=== PATIENT | female | born 1945 | race African-American/Black ===

== ENCOUNTER 2019-08-22 09:35 | Emergency (ER) | payer MEDICAID, MEDICARE ==
[~2019-08-22] VITALS: Ht 157.5 cm; Wt 56.0 kg
[~2019-08-22 09:35] MED LIST: DIOVAN; VALS320T2
[2019-08-22 13:17] VITALS: BP 154/81
[2019-08-22] MEDS ORDERED: ACETAMINOPHEN 500MG TABLET PO ONE (13:30)
== END 2019-08-22 13:42 | disposition home or self-care (01) ==
LOC: ER 09:35
DX: M25.561 Pain in right knee (principal); I10 Essential (primary) hypertension; M25.461 Effusion, right knee; Z98.890 Other specified postprocedural states
CPT/HCPCS: 29505; 73562; 99283

== ENCOUNTER 2019-11-21 19:28 | Emergency (ER) | payer MEDICARE, MEDICAID ==
[~2019-11-21] VITALS: Ht 157.5 cm; Wt 57.0 kg
[2019-11-21 19:59] VITALS: BP 175/119
== END 2019-11-22 05:16 | disposition left against medical advice (07) ==
LOC: ER 19:28 → EDBD 19:28 → ER 11-22 05:16
DX: R07.89 Other chest pain (principal)
CPT/HCPCS: 99281

== ENCOUNTER 2020-01-14 17:03 | Inpatient (IN) | payer MEDICARE, MEDICAID ==
[~2020-01-14] VITALS: Ht 162.6 cm; Wt 56.4 kg
[2020-01-14 16:30] VITALS: BP 139/93
[~2020-01-14 17:03] MED LIST changes: +ASCO500T20 PO; +FAMO20TA8 PO; +NITR-87 MT; +ZINC220C2 PO
[2020-01-14] MEDS ORDERED: MAGNESIUM/ALUMINUM HYDROXIDE/SIMETHICONE 30ML UDC PO PRN (17:45)
[2020-01-14] MEDS ORDERED: ZOLPIDEM TARTRATE 5MG TABLET PO PRN (17:45)
[2020-01-14] MEDS ORDERED: DOCUSATE SODIUM 100MG CAPSULE PO PRN (17:45)
[2020-01-14] MEDS ORDERED: NITROGLYCERIN 0.4MG TABLET SL SL PRN (17:45)
[2020-01-14] MEDS ORDERED: IPRATROPIUM/ALBUTEROL 0.5-3(2.5)MG/3ML NEB HHN PRN (17:45)
[2020-01-14] MEDS ORDERED: GUAIFENESIN 200MG/10ML SUGAR FREE UDC PO PRN (17:45)
[2020-01-14] MEDS ORDERED: HALOPERIDOL LACTATE 5MG/ML VIAL IM PRN (17:45)
[2020-01-14] MEDS ORDERED: CLONIDINE 0.1MG TABLET PO PRN (17:45)
[2020-01-14] MEDS ORDERED: ONDANSETRON 4MG ODT PO PRN (17:45)
[2020-01-14 20:00] VITALS: BP 157/66
[2020-01-14] MEDS: ASCORBIC ACID 500 MG TABLET PO SCH (21:34)
[2020-01-15 07:38] LABS: BASOPHILS % 0.9 % (0.0-2.0); EOSINOPHILS % 3.4 % (0.0-5.0); HEMATOCRIT. 39.3 % (36.0-48.0); HEMOGLOBIN. 12.8 g/dL (12.0-16.0); LYMPHOCYTES % 35.2 % (20.0-50.0); MEAN CORPUSCULAR HEMOGLOBIN 29.3 pg (28.0-32.0); MEAN CORPUSCULAR VOLUME 89.9 fL (81.0-99.0); MEAN PLATELET VOLUME 9.3 fl (7.4-10.4); MONOCYTES % 12.7 % (2.0-8.0); NEUTROPHILS % 47.8 % (40.0-76.0); PLATELET 200 x1000/uL (130-400); RED BLOOD CELL COUNT 4.37 mill/uL (4.2-5.4); RED CELL DISTRIBUTION WIDTH 16.3 % (11.6-14.6)
[2020-01-15 07:43] LABS: CHLORIDE 110 mEq/L (98-107)
[2020-01-15 08:15] VITALS: BP 92/52
[2020-01-15] MEDS: ENOXAPARIN 30MG/0.3ML SYR SUBCUT SCH (08:33)
[2020-01-15] MEDS: ZINC SULFATE 220 MG ( 50 ) CAPSULE PO SCH (08:34)
[2020-01-15] MEDS: ASPIRIN 325MG EC TABLET PO SCH (08:34)
[2020-01-15] MEDS: FAMOTIDINE 20MG/2ML VIAL IV SCH ×2 (08:34→08:38)
[2020-01-15] MEDS: ASCORBIC ACID 500 MG TABLET PO SCH ×2 (08:34→21:42)
[2020-01-15] MEDS: ACETAMINOPHEN 650MG/20.3ML UDC PO PRN ×2 (17:11→22:34)
[2020-01-15] MEDS ORDERED: BISACODYL 5MG TABLET PO PRN (19:00)
[2020-01-15] MEDS ORDERED: NA PHOS,M-B/NA PHOS,DI-BA ENEMA 118ML PR PRN (19:00)
[2020-01-15] MEDS ORDERED: LACTULOSE 20G/30ML UDC PO PRN (19:00)
[2020-01-15] MEDS ORDERED: OXYCODONE HCL 5MG TABLET PO PRN (19:45)
[2020-01-15 20:00] VITALS: BP 134/93
[2020-01-16 06:49] LABS: CHLORIDE 108 mEq/L (98-107)
[2020-01-16 06:57] LABS: BASOPHILS % 1.2 % (0.0-2.0); EOSINOPHILS % 3.8 % (0.0-5.0); HEMATOCRIT. 37.8 % (36.0-48.0); HEMOGLOBIN. 12.7 g/dL (12.0-16.0); LYMPHOCYTES % 42.2 % (20.0-50.0); MEAN CORPUSCULAR VOLUME 89.4 fL (81.0-99.0); MEAN PLATELET VOLUME 9.4 fl (7.4-10.4); MONOCYTES % 10.4 % (2.0-8.0); NEUTROPHILS % 42.4 % (40.0-76.0); PLATELET 187 x1000/uL (130-400); RED BLOOD CELL COUNT 4.22 mill/uL (4.2-5.4); RED CELL DISTRIBUTION WIDTH 16.2 % (11.6-14.6)
[2020-01-16 07:01] LABS: PHOSPHORUS 4.6 mg/dL (2.5-4.9)
[2020-01-16 07:02] LABS: TOTAL IRON BINDING CAPACITY 292 ug/dL (250-450)
[2020-01-16 07:26] LABS: VITAMIN B12 SERUM 630 pg/mL (211-911)
[2020-01-16 08:14] VITALS: BP 110/68
[2020-01-16] MEDS: ENOXAPARIN 30MG/0.3ML SYR SUBCUT SCH (08:53)
[2020-01-16] MEDS: LIDOCAINE 5% PATCH TOP SCH (08:53)
[2020-01-16] MEDS: FAMOTIDINE 20MG TABLET PO SCH (08:54)
[2020-01-16] MEDS: ASPIRIN 325MG EC TABLET PO SCH (08:54)
[2020-01-16] MEDS: ZINC SULFATE 220 MG ( 50 ) CAPSULE PO SCH (08:54)
[2020-01-16] MEDS: ASCORBIC ACID 500 MG TABLET PO SCH ×2 (08:54→21:16)
[2020-01-16] MEDS: ACETAMINOPHEN 650MG/20.3ML UDC PO PRN ×2 (10:35→21:17)
[2020-01-16] MEDS ORDERED: BISACODYL 10MG SUPP PR NR (13:30)
[2020-01-16] MEDS ORDERED: LACTULOSE 20G/30ML UDC PO SCH (13:32)
[2020-01-16] MEDS ORDERED: CYANOCOBALAMIN 1000MCG/ML VIAL IM NR (14:00)
[2020-01-16] MEDS: FERROUS SULFATE 325MG TABLET PO SCH (16:23)
[2020-01-16 17:14] LABS: CLARITY URINE CLOUDY (CLEAR); COLOR URINE YELLOW (YELLOW); KETONES URINE TRACE (NEGATIVE); LEUKOCYTE ESTERASE URINE 1+ (NEGATIVE); NITRITE URINE NEGATIVE (NEGATIVE); OCCULT BLOOD URINE NEGATIVE (NEGATIVE); PROTEIN URINE NEGATIVE (NEGATIVE); SPECIFIC GRAVITY URINE 1.036 (1.005-1.030)
[2020-01-16 20:00] VITALS: BP 125/86
[2020-01-16] MEDS: POLYETHYLENE GLYCOL 3350 (17GM) 1 DOSE PACK PO SCH (21:16)
[2020-01-17 07:48] VITALS: BP 130/77
[2020-01-17] MEDS: FAMOTIDINE 20MG TABLET PO SCH (08:16)
[2020-01-17] MEDS: FERROUS SULFATE 325MG TABLET PO SCH ×3 (08:16→16:48)
[2020-01-17] MEDS: ASCORBIC ACID 500 MG TABLET PO SCH ×2 (08:16→19:45)
[2020-01-17] MEDS: ASPIRIN 325MG EC TABLET PO SCH (08:16)
[2020-01-17] MEDS: LIDOCAINE 5% PATCH TOP SCH (08:17)
[2020-01-17] MEDS: ENOXAPARIN 30MG/0.3ML SYR SUBCUT SCH (08:17)
[2020-01-17] MEDS: ZINC SULFATE 220 MG ( 50 ) CAPSULE PO SCH (08:17)
[2020-01-17] MEDS: POLYETHYLENE GLYCOL 3350 (17GM) 1 DOSE PACK PO SCH (19:45)
[2020-01-17] MEDS: ACETAMINOPHEN 650MG/20.3ML UDC PO PRN (19:45)
[2020-01-17 20:00] VITALS: BP 130/68
[2020-01-18 08:00] VITALS: BP_SYST 115; BP_SYST 127; BP_DIAS 75; BP_DIAS 86
[2020-01-18] MEDS: ZINC SULFATE 220 MG ( 50 ) CAPSULE PO SCH (08:20)
[2020-01-18] MEDS: ASCORBIC ACID 500 MG TABLET PO SCH ×2 (08:20→20:40)
[2020-01-18] MEDS: FERROUS SULFATE 325MG TABLET PO SCH ×3 (08:20→16:57)
[2020-01-18] MEDS: FAMOTIDINE 20MG TABLET PO SCH (08:21)
[2020-01-18] MEDS: LIDOCAINE 5% PATCH TOP SCH (08:21)
[2020-01-18] MEDS: ENOXAPARIN 30MG/0.3ML SYR SUBCUT SCH (08:21)
[2020-01-18] MEDS: ASPIRIN 325MG EC TABLET PO SCH (08:21)
[2020-01-18 08:39] VITALS: BP 127/86
[2020-01-18] MEDS ORDERED: HALOPERIDOL LACTATE 5MG/ML VIAL IM ONE (19:00)
[2020-01-18 19:58] VITALS: BP 124/74
[2020-01-18 20:00] VITALS: BP 129/83
[2020-01-18] MEDS: POLYETHYLENE GLYCOL 3350 (17GM) 1 DOSE PACK PO SCH (20:40)
[2020-01-19] MEDS: ACETAMINOPHEN 650MG/20.3ML UDC PO PRN ×2 (02:07→19:22)
[2020-01-19 05:07] LABS: 25-HYDROXY VITAMIN D3 12 ng/mL (.)
[2020-01-19 08:29] VITALS: BP 126/73
[2020-01-19] MEDS: ZINC SULFATE 220 MG ( 50 ) CAPSULE PO SCH (09:44)
[2020-01-19] MEDS: FERROUS SULFATE 325MG TABLET PO SCH ×3 (09:44→17:02)
[2020-01-19] MEDS: FAMOTIDINE 20MG TABLET PO SCH (09:44)
[2020-01-19] MEDS: ASPIRIN 325MG EC TABLET PO SCH (09:44)
[2020-01-19] MEDS: LIDOCAINE 5% PATCH TOP SCH (09:45)
[2020-01-19] MEDS: ASCORBIC ACID 500 MG TABLET PO SCH ×2 (09:45→21:50)
[2020-01-19] MEDS: ENOXAPARIN 30MG/0.3ML SYR SUBCUT SCH (09:45)
[2020-01-19 16:07] LABS: BASOPHILS % 1.1 % (0.0-2.0); EOSINOPHILS % 2.6 % (0.0-5.0); HEMATOCRIT. 39.8 % (36.0-48.0); LYMPHOCYTES % 39.1 % (20.0-50.0); MEAN CORPUSCULAR HEMOGLOBIN 29.5 pg (28.0-32.0); MEAN CORPUSCULAR VOLUME 90.2 fL (81.0-99.0); MEAN PLATELET VOLUME 9.5 fl (7.4-10.4); MONOCYTES % 9.3 % (2.0-8.0); NEUTROPHILS % 47.9 % (40.0-76.0); PLATELET 236 x1000/uL (130-400); RED BLOOD CELL COUNT 4.42 mill/uL (4.2-5.4); RED CELL DISTRIBUTION WIDTH 16.8 % (11.6-14.6)
[2020-01-19] MEDS ORDERED: ERGOCALCIFEROL 50000UNITS CAPSULE PO SCH ×2 (16:15→23:00)
[2020-01-19 16:24] LABS: CHLORIDE 110 mEq/L (98-107)
[2020-01-19 20:00] VITALS: BP 138/87
[2020-01-19] MEDS: POLYETHYLENE GLYCOL 3350 (17GM) 1 DOSE PACK PO SCH (21:50)
[2020-01-19] MEDS ORDERED: METHOTREXATE SODIUM 2 . 5MG TABLET PO SCH (22:00)
[2020-01-20 08:04] VITALS: BP 148/88
[2020-01-20] MEDS: FAMOTIDINE 20MG TABLET PO SCH (08:37)
[2020-01-20] MEDS: ZINC SULFATE 220 MG ( 50 ) CAPSULE PO SCH (08:37)
[2020-01-20] MEDS: ASCORBIC ACID 500 MG TABLET PO SCH (08:37)
[2020-01-20] MEDS: FERROUS SULFATE 325MG TABLET PO SCH (08:37)
[2020-01-20] MEDS: ASPIRIN 325MG EC TABLET PO SCH (08:37)
[2020-01-20] MEDS: ENOXAPARIN 30MG/0.3ML SYR SUBCUT SCH (08:38)
[2020-01-20] MEDS: LIDOCAINE 5% PATCH TOP SCH (08:38)
[2020-01-20] MEDS ORDERED: FOLIC ACID 1MG TABLET PO SCH (09:00)
[2020-01-20] MEDS ORDERED: DICLOFENAC SODIUM 75MG DR (EC) TABLET PO SCH (09:00)
[2020-01-20 10:11] VITALS: BP 148/88
== END 2020-01-20 11:50 | disposition home health service (06) | DRG 70 ==
PROVIDERS: ADMIT Physical Medicine & Rehabilitation Spinal Cord Injury Medicine; ATTEND Internal Medicine
PROC: 0S9C3ZZ Drainage of Right Knee Joint, Percutaneous Approach (ICD-10-PCS; principal; 2020-01-19)
PROC: 0S9D3ZZ Drainage of Left Knee Joint, Percutaneous Approach (ICD-10-PCS; 2020-01-19)
DX: G93.41 Metabolic encephalopathy (principal); G82.50 Quadriplegia, unspecified; A41.9 Sepsis, unspecified organism; N39.0 Urinary tract infection, site not specified; E44.1 Mild protein-calorie malnutrition; M62.82 Rhabdomyolysis; M06.9 Rheumatoid arthritis, unspecified; I11.9 Hypertensive heart disease without heart failure; E61.1 Iron deficiency; B96.20 Unspecified Escherichia coli [E. coli] as the cause of diseases classified elsewhere; E55.9 Vitamin D deficiency, unspecified; M17.0 Bilateral primary osteoarthritis of knee; R62.7 Adult failure to thrive; R53.81 Other malaise; M25.561 Pain in right knee; G70.9 Myoneural disorder, unspecified; Z87.891 Personal history of nicotine dependence; Z82.49 Family history of ischemic heart disease and other diseases of the circulatory system; Z97.0 Presence of artificial eye; Z68.21 Body mass index [BMI] 21.0-21.9, adult; Z79.899 Other long term (current) drug therapy; Z79.82 Long term (current) use of aspirin
CPT/HCPCS: 36415; 73560; 80048; 80053; 81003; 82306; 82607; 83540; 83550; 83735; 84100; 84134; 85025; 92523; 92610; 93970; 97110; 97116; 97162; 97166; 97530; 97535; J1630; J1650; J3420; J3490

== ENCOUNTER 2020-02-20 06:27 | Inpatient (IN) | payer MEDICARE, MEDICAID ==
[~2020-02-20] VITALS: Ht 157.5 cm; Wt 61.2 kg
[2020-02-20] MEDS ORDERED: ACETAMINOPHEN 325MG TABLET PO ONE (07:30)
[2020-02-20 09:00] LABS: BASOPHILS % 0.7 % (0.0-2.0); EOSINOPHILS % 0.6 % (0.0-5.0); HEMOGLOBIN. 12.3 g/dL (12.0-16.0); LYMPHOCYTES % 14.3 % (20.0-50.0); MEAN CORPUSCULAR VOLUME 90.4 fL (81.0-99.0); MEAN PLATELET VOLUME 8.7 fl (7.4-10.4); MONOCYTES % 6.7 % (2.0-8.0); NEUTROPHILS % 77.7 % (40.0-76.0); PLATELET 236 x1000/uL (130-400); RED CELL DISTRIBUTION WIDTH 16.7 % (11.6-14.6)
[2020-02-20 09:08] LABS: CHLORIDE 108 mEq/L (98-107)
[2020-02-20] MEDS ORDERED: MAGNESIUM/ALUMINUM HYDROXIDE/SIMETHICONE 30ML UDC PO PRN (13:30)
[2020-02-20] MEDS ORDERED: NA PHOS,M-B/NA PHOS,DI-BA ENEMA 118ML PR PRN (13:30)
[2020-02-20] MEDS ORDERED: GUAIFENESIN 200MG/10ML SUGAR FREE UDC PO PRN (13:30)
[2020-02-20] MEDS ORDERED: DOCUSATE SODIUM 100MG CAPSULE PO PRN (13:30)
[2020-02-20] MEDS ORDERED: IPRATROPIUM/ALBUTEROL 0.5-3(2.5)MG/3ML NEB NEB PRN (13:30)
[2020-02-20] MEDS ORDERED: ACETAMINOPHEN 325MG TABLET PO PRN (13:30)
[2020-02-20] MEDS ORDERED: DIPHENHYDRAMINE 50MG/ML VIAL IV PRN (13:30)
[2020-02-20] MEDS ORDERED: ONDANSETRON HCL 4MG/2ML INJ IV PRN (13:30)
[2020-02-20 14:30] VITALS: BP 163/102
[2020-02-20] MEDS: CLONIDINE 0.1MG TABLET PO PRN (15:40)
[2020-02-20 16:44] LABS: CHLORIDE 112 mEq/L (98-107)
[2020-02-20 20:00] VITALS: BP 149/89
[2020-02-20] MEDS: HYDROCODONE/ACETAMINOPHEN 5/325MG TABLET PO PRN (21:21)
[2020-02-21] VITALS: BP 135/81
[2020-02-21 04:00] VITALS: BP 131/81
[2020-02-21] MEDS: HYDROCODONE/ACETAMINOPHEN 5/325MG TABLET PO PRN (05:26)
[2020-02-21 08:00] VITALS: BP 123/78
[2020-02-21 08:14] LABS: EOSINOPHILS % 2.3 % (0.0-5.0); HEMATOCRIT. 40.5 % (36.0-48.0); HEMOGLOBIN. 13.3 g/dL (12.0-16.0); LYMPHOCYTES % 36.7 % (20.0-50.0); MEAN CORPUSCULAR HEMOGLOBIN 30.4 pg (28.0-32.0); MEAN CORPUSCULAR VOLUME 92.2 fL (81.0-99.0); MEAN PLATELET VOLUME 9.4 fl (7.4-10.4); MONOCYTES % 6.5 % (2.0-8.0); NEUTROPHILS % 53.5 % (40.0-76.0); PLATELET 221 x1000/uL (130-400); RED BLOOD CELL COUNT 4.39 mill/uL (4.2-5.4)
[2020-02-21 08:33] LABS: CHLORIDE 108 mEq/L (98-107)
[2020-02-21 08:42] LABS: LDL CHOLESTEROL 72 mg/dL (5-100)
[2020-02-21 08:44] LABS: HDL CHOLESTEROL 88 mg/dL (40-59)
[2020-02-21 08:46] LABS: T4 FREE 1.07 ng/dL (0.76-1.46)
[2020-02-21] MEDS: ASPIRIN 81MG EC TABLET PO SCH (10:24)
[2020-02-21 12:00] VITALS: BP 107/69
[2020-02-21] MEDS: SODIUM CHLORIDE 0.45% 1,000 ML IV SCH (14:05)
[2020-02-21 16:00] VITALS: BP 159/97
[2020-02-21] MEDS: LORAZEPAM 2MG/ML CPJ IV PRN (18:33)
[2020-02-21 20:00] VITALS: BP 145/93
[2020-02-21 21:55] LABS: VITAMIN B12 SERUM 652 pg/mL (211-911)
[2020-02-22] VITALS: BP 151/88
[2020-02-22 04:00] VITALS: BP 153/93
[2020-02-22 08:00] VITALS: BP 141/20
[2020-02-22] MEDS: ASPIRIN 81MG EC TABLET PO SCH (08:55)
[2020-02-22 12:00] VITALS: BP 130/75
[2020-02-22] MEDS: SODIUM CHLORIDE 0.45% 1,000 ML IV SCH (13:30)
[2020-02-22 16:00] VITALS: BP 138/88
[2020-02-22 20:00] VITALS: BP 147/94
[2020-02-23] VITALS: BP 146/92
[2020-02-23 04:00] VITALS: BP 149/83
[2020-02-23 08:00] VITALS: BP 157/94
[2020-02-23] MEDS: ASPIRIN 81MG EC TABLET PO SCH (10:54)
[2020-02-23] MEDS: CLONIDINE 0.1MG TABLET PO PRN (11:41)
[2020-02-23 12:00] VITALS: BP 164/103
[2020-02-23 16:00] VITALS: BP 139/95
[2020-02-23 20:00] VITALS: BP_SYST 133; BP_SYST 149; BP_DIAS 86; BP_DIAS 90
[2020-02-24] VITALS: BP 149/90
[2020-02-24 04:00] VITALS: BP 141/88
[2020-02-24 08:00] VITALS: BP 139/93
[2020-02-24] MEDS: ASPIRIN 81MG EC TABLET PO SCH (08:35)
[2020-02-24 12:00] VITALS: BP 159/100
[2020-02-24] MEDS: SODIUM CHLORIDE 0.45% 1,000 ML IV SCH (12:35)
[2020-02-24 16:00] VITALS: BP 137/92
[2020-02-24 20:00] VITALS: BP 142/93
[2020-02-25] VITALS: BP 130/74
[2020-02-25] MEDS: LORAZEPAM 2MG/ML CPJ IV PRN ×2 (00:37→06:44)
[2020-02-25 04:00] VITALS: BP 119/79
[2020-02-25] MEDS: SODIUM CHLORIDE 0.45% 1,000 ML IV SCH (06:13)
[2020-02-25 08:00] VITALS: BP 117/82
[2020-02-25] MEDS: ASPIRIN 81MG EC TABLET PO SCH (09:14)
[2020-02-25 11:03] VITALS: BP 126/79
== END 2020-02-25 11:08 | disposition home or self-care (01) | DRG 551 ==
LOC: ER 06:27 → 6EST 11:23 → ENRESERV 13:27
PROVIDERS: ADMIT Internal Medicine; ATTEND Internal Medicine
DX: M48.061 Spinal stenosis, lumbar region without neurogenic claudication (principal); G93.41 Metabolic encephalopathy; M51.06 Intervertebral disc disorders with myelopathy, lumbar region; E46 Unspecified protein-calorie malnutrition; M48.02 Spinal stenosis, cervical region; I10 Essential (primary) hypertension; R55 Syncope and collapse; M17.0 Bilateral primary osteoarthritis of knee; M41.9 Scoliosis, unspecified; M71.20 Synovial cyst of popliteal space [Baker], unspecified knee; M47.816 Spondylosis without myelopathy or radiculopathy, lumbar region; M85.80 Other specified disorders of bone density and structure, unspecified site; W18.39XA Other fall on same level, initial encounter; Y93.01 Activity, walking, marching and hiking; Z79.899 Other long term (current) drug therapy; Z87.891 Personal history of nicotine dependence; Z68.24 Body mass index [BMI] 24.0-24.9, adult; Y92.89 Other specified places as the place of occurrence of the external cause; Y99.8 Other external cause status
CPT/HCPCS: 36415; 72141; 72148; 72170; 73560; 73700; 80048; 80053; 80061; 82607; 84439; 84443; 84484; 85025; 93005; 97116; 97162; 97166; 99285; J1200; J2060

== ENCOUNTER 2020-03-05 23:16 | Emergency (ER) | payer MEDICARE, MEDICAID ==
[~2020-03-05] VITALS: Ht 170.2 cm; Wt 59.0 kg
[2020-03-05] MEDS ORDERED: SODIUM CHLORIDE 0.9% 1,000 ML IV ONE (23:36)
[2020-03-06 00:20] VITALS: BP 126/89
== END 2020-03-06 01:22 | disposition left against medical advice (07) ==
LOC: ER 23:16 → CANBEDREQ 03-06 07:50
DX: G93.40 Encephalopathy, unspecified (principal); F03.90 Unspecified dementia, unspecified severity, without behavioral disturbance, psychotic disturbance, mood disturbance, and anxiety; I10 Essential (primary) hypertension; Z79.899 Other long term (current) drug therapy
CPT/HCPCS: 70450; 82962; 93005; 99284; J7030